=== PATIENT | female | born 1960 | race Caucasian/White ===

== ENCOUNTER 2019-05-22 15:06 | Observation (INO) ==
[2019-05-22] MEDS ORDERED: Potassium Chloride Elixir 20 MEQ/15 ML UDC PO ONE (16:01)
[2019-05-22] MEDS ORDERED: Potassium Chloride 40 MEQ, Lidocaine 1% 2 ML in D5% in Water 500 ML IVPB ONE (16:01)
[2019-05-22] MEDS ORDERED: *HR* LORazepam 2 MG/ML VIAL IVP ONE (16:14)
[2019-05-22] MEDS ORDERED: *HR* OxyCODONE/APAP 5/325 TABLET PO ONE (16:14)
--- NOTE | 2019-05-22 16:18 | Emergency Department Note ---
Disposition Clinical Impression: Hypokalemia, Fracture of left lower extremity Disposition: Admitted As Inpatient Time of Disposition: 00:34 General Adult HPI - General Chief complaint: ED Recheck/Abnormal Lab/Rx Stated complaint: low potassium Time Seen by Provider: 05/22/19 15:59 Source: patient - History of Present Illness HPI Narrative: 59-year-old female reports emergency department with concerns for low potassium levels. She is slated for left lower extremity surgery and had outpatient testing today preop. Her potassium level is 2.5 outpatient she was called and told to come to the emergency department. The patient slipped and fractured her left leg and has been evaluated by orthopedics. She states she is scheduled to have surgery this . The patient denies injury otherwise. She denies chest pain shortness breath abdominal pain vomiting or diarrhea. No back pain headache neck pain upper externa pain or right lower external pain. The left lower extremity has not been cold blue numb or weak there is no history of thigh pain coughing up blood or syncope. No palpitations or muscle cramps. Pain Scale: 8 - Related Data Home Medications Medication Instructions Recorded Confirmed Cetirizine HCl [24Hour Allergy] 10 mg PO QAM 05/22/19 05/22/19 Losartan 100 mg PO QAM 05/22/19 05/22/19 Metoprolol Succinate [Toprol Xl] 50 mg PO 05/22/19 Omeprazole 40 mg PO QAM 05/22/19 05/22/19 Percocet 5-325 mg Tablet 5 mg PO Q6HR PRN 05/22/19 05/22/19 Pioglitazone [Actos] 30 mg PO QAM 05/22/19 05/22/19 Viibryd 40 PO DAILY 05/22/19 Allergies Allergy/AdvReac Type Severity Reaction Status Date / Time codeine Allergy Itching, Verified 05/22/19 12:39 Hives Jtacgdu-Ths-Mgh Reductase Allergy Muscle Pain Verified 05/22/19 12:39 Inhibitor [Statins] All systems ED: reviewed and negative except as stated. Past Medical History - Past Medical History Medical history: Reports: hypertension, SVT Surgical history: Reports: , hysterectomy Psychiatric history: Reports: anxiety, depression, PTSD BLOOD BANK COORDINATOR history: Reports: no BLOOD BANK COORDINATOR history - Social History Smoking Status: Current every day smoker Alcohol use: Reports: rarely Drug use: Reports: none Physical Exam - General Limitations: no limitations General appearance: alert, anxious - Head Head exam: atraumatic - Eye Eye exam: Present: normal appearance, PERRL, EOMI - ENT ENT exam: normal exam, normal oropharynx, mucous membranes moist - Neck Neck exam: Present: normal inspection, full ROM, trachea midline - Chest Chest inspection: Present: symmetric chest wall rise. Absent: tenderness - Respiratory Respiratory exam: Present: normal lung sounds bilaterally. Absent: respiratory distress, prolonged expiratory phase - Cardiovascular Cardiovascular exam: Present: regular rate, normal rhythm, normal heart sounds - Abdominal Exam Abdominal exam: Present: soft, Non-Tender, normal bowel sounds. Absent: tenderness, distention, guarding, rebound, rigidity - Extremities Exam Extremities exam: Present: normal capillary refill, other (The upper extremities and right lower extremity are supple warm and well perfused without evidence of injury or gross anatomic abnormality. The left lower extremity is wrapped and splinted below the knee. Toes are exposed warm and well-perfused sensate and mobile. The left knee and hip are supple. There is no evidence of thigh hip or knee pain to palpation or with movement. There is no cellulitic change noted in these areas.). Absent: pedal edema - Back Exam Back exam: Present: normal inspection, full ROM. Absent: tenderness, CVA tenderness (R), CVA tenderness (L), vertebral tenderness - Neurological Exam Neurological exam: Present: alert, oriented X3, CN II-XII intact. Absent: motor sensory deficit - Psychiatric Psychiatric exam: Present: normal affect, normal mood - Skin Skin exam: Present: warm, dry, intact, normal color Course Vital Signs Temperature 98.1 F 05/22/19 15:29 Pulse Rate 93 05/22/19 15:29 Respiratory Rate 16 05/22/19 15:29 Blood Pressure 132/84 05/22/19 15:29 O2 Sat by Pulse Oximetry 98 05/22/19 15:29 Temperature 98.0 F 05/22/19 22:28 Pulse Rate 82 05/22/19 22:28 Respiratory Rate 18 05/22/19 22:28 Blood Pressure 151/82 05/22/19 22:28 O2 Sat by Pulse Oximetry 94 05/22/19 22:28 Oxygen Delivery Oxygen Delivery Room Air Medical Decision Making - [facility] Narrative Medical decision making narrative: The patient's potassium is 2.5. EKG shows no major abnormality. Magnesium normal. IV potassium was ordered as well as by mouth potassium. The patient was somewhat anxious and was given Ativan. She requested pain medication for her left lower extremity fracture. Percocet was ordered. Based on the patie nt's significant electrolyte disturbance I thought it would be appropriate to admit the patient the hospital. She also has a CT scan of her left lower extremity pending and has LLE surgery pending this coming . I discussed the case with the hospitalist on-call who has accepted the patient to their care. She is agreeable. - Lab Data Lab results reviewed: Yes I reviewed the patient's lab results. Result diagrams: 05/22/19 16:15 Lab Results 05/22/19 Range/Units 16:15 Sodium 142 (136-145) mEq/L Potassium 2.5 L* (3.5-5.1) mEq/L Chloride 97 L (98-107) mEq/L Carbon Dioxide 32 H (23-29) mEq/L BUN 5 L (6-20) mg/dL Creatinine 0.54 L (0.60-1.20) mg/dL Est GFR ( Amer) > 60 (> 60) Est GFR (Non-Af Amer) > 60 (> 60) BUN/Creatinine Ratio 9 (6-26) Glucose 159 H (70-105) mg/dL Calculated Osmolality 295 (280-300) Calcium 9.3 (8.6-10.3) mg/dL Magnesium 1.6 (1.6-2.6) mg/dL
[2019-05-22 17:33] LABS: BUN/Creatinine Ratio 9 (6-26); Blood Urea Nitrogen 5 mg/dL (6-20); Calcium 9.3 mg/dL (8.6-10.3); Carbon Dioxide 32 mEq/L (23-29); Chloride 97 mEq/L (98-107); Glucose 159 mg/dL (70-105); Magnesium 1.6 mg/dL (1.6-2.6); Osmolality,Calculated 295 (280-300); Potassium 2.5 mEq/L (3.5-5.1); Sodium 142 mEq/L (136-145); eGFR For African Americans > 60 (> 60); eGFR For Non-African Americans > 60 (> 60)
[2019-05-22] MEDS ORDERED: Acetaminophen 325 MG TABLET PO PRN (19:19)
[2019-05-22] MEDS ORDERED: Naloxone 0.4 MG/ML INJ IVP PRN (19:19)
--- NOTE | 2019-05-22 19:25 | Internal Med History&Physical ---
Date of Encounter: 05/23/19 Time of Encounter: 19:24 Internal Medicine - H&P: HPI Chief complaint: Hypokalemia History of present illness: Ms. Pena is a 59 year old female with past medical history of hypertension, SVT, depression and anxiety who presents to the ED after preoperative outpatient laboratory workup revealed significant hypokalemia. Patient was found to have a potassium of 2.5 and instructed to come in for further evaluation. Patient recently slipped and fractured her left leg and was being evaluated by orthopedics and has a planned surgical procedure this . Patient was evaluated in the ED in March of this year for palpitations. At the time she was found to have a mildly low potassium level of 3.2. Patient otherwise at this time reports no symptoms stating she was completely asymptomatic. No reports of changes in medication, nausea, vomiting or diarrhea. On initial presentation, vitals were stable. Laboratory workup notable for a potassium of 2.5, bicarbonate 32, normal kidney function and a magnesium of 1.6. EKG relatively unremarkable. Patient received 40 mEq of oral potassium as well as 40 mEq of IV piggyback. On my assessment, patient was disgruntled and did not want come into the hospital today. She is adamant about leaving tomorrow and following up plan for surgical correction of her left ankle. Past Med Surg Social Fam HX - Past Medical History Medical history: hypertension, SVT Additional medical history: Palpitation. Anxiety. Hyperlipidemia. Neck Sx Psychiatric history: anxiety, depression, PTSD - Past Surgical History Surgical History: , hysterectomy Additional surgical history: c5/c7 fusion, posterior ablation - Social History Smoking Status: Current every day smoker Alcohol use: rarely Drug use: none Internal Medicine - H&P: Meds Cetirizine HCl [24Hour Allergy] 10 mg PO QAM 05/22/19 [History] Losartan 100 mg PO QAM 05/22/19 [History] Metoprolol Succinate [Toprol Xl] 50 mg PO 05/22/19 [History] Omeprazole 40 mg PO QAM 05/22/19 [History] Percocet 5-325 mg Tablet 5 mg PO Q6HR PRN 05/22/19 [History] Pioglitazone [Actos] 30 mg PO QAM 05/22/19 [History] Viibryd 40 PO DAILY 05/22/19 [History] Potassium Chloride 40 meq PO DAILY #60 tab.er.prt 05/23/19 [Rx] Allergy/AdvReac Type Severity Reaction Status Date / Time codeine Allergy Itching, Verified 05/22/19 12:39 Hives Tjgbwdd-Imt-Gvf Reductase Allergy Muscle Pain Verified 05/22/19 12:39 Inhibitor [Statins] All Systems PM: A 10-system review of systems was performed and is negative for pertinent findings except as documented above in the HPI. - Constitutional Constitutional: no chills, no fever(s), no night sweats - EENT Eyes: no change in vision, no discharge, no pain, no photophobia Ears: no ear discharge, no ear pain, no tinnitus Nose, mouth and throat: no dysphagia, no nasal discharge, no neck pain, no sore throat - Cardiovascular Cardiovascular ROS IM: no chest pain, no diaphoresis, no dyspnea, no lightheadedness, no palpitations, no syncope - Respiratory Respiratory: no cough, no dyspnea, no wheezing, no excessive phlegm production - Gastrointestinal Gastrointestinal: no abdominal pain, no diarrhea, no hematemesis, no hematochezia, no melena, no nausea, no vomiting - Genitourinary Genitourinary: no change in urinary stream, no dysuria, no flank pain, no hematuria - Musculoskeletal Musculoskeletal ROS IM: no numbness, no tingling - Integumentary Integumentary IM: no rash, no unusual bruising - Neurological Neurological ROS: no confusion, no convulsions, no focal weakness, no numbness, no tingling, no tremor(s) - Hematologic/Lymphatic Hematologic/Lymphatic: no easy bruising - Constitutional Vitals: Temp Pulse Resp BP Pulse Ox 98.1 F 89 19 146/86 96 05/22/19 16:00 05/22/19 18:08 05/22/19 18:08 05/22/19 18:08 05/22/19 18:08 Exam: General: Alert and oriented 3 lying in bed in no acute distress Skin:Normal color, no rash, no lesions. HEENT:EOM, pupils equal, round and reactive. Cardiovascular:Normal S1 & S2, no rubs, murmurs or gallops. No JVD. Pulse regular. Lungs:Normal breath sounds, no wheezes or crackles. Abdomen:Soft, non-tender, no rigidity. Extremities:No deformity, no edema or tenderness, no joint swelling or clubbing. Neurological:Normal cognition and motor skills. Pulses:Carotid and radial pulses normal +2. Rest of the physical exam is non contributory Internal Med - H&P Results - Labs CBC & Chem 7: 05/23/19 10:13 Labs: BMP 05/22/19 16:15 Sodium 142 Potassium 2.5 L* Chloride 97 L Carbon Dioxide 32 H BUN 5 L Creatinine 0.54 L Glucose 159 H Calcium 9.3 - Assessment and Plan (1) Fracture of left lower extremity Status: Acute Assessment and plan: Patient followed by orthopedics. Has planned surgical intervention on . -Continue pain control. -Consider orthopedics consult if patient to remain hospitalized Qualifiers: Encounter type: subsequent encounter Fracture type: closed Fracture healing: with routine healing Qualified Code(s): S82.92XD - Unspecified fracture of left lower leg, subsequent encounter for closed fracture with routine healing (2) Hypokalemia Status: Acute Assessment and plan: Hyperkalemia with a potassium of 2.5. Etiology at this time unclear. No significant EKG changes noted. Patient otherwise asymptomatic. Patient received a total of 80 mEq via IV and by mouth patient. -Reassess potassium and replete as needed -Continue telemetry (3) JAYLA (obstructive sleep apnea) Status: Acute Assessment and plan: Continue home CPAP at night (4) DVT prophylaxis Status: Acute Assessment and plan: Subcutaneous heparin - Time Spent With Patient Total time spent is greater than 50% in coordination of care (as documented) at patient's floor/unit and/or counseling patient:
[2019-05-22] MEDS: *HR* Heparin 5,000 UNIT/ML VIAL SQ SCH (21:29)
[2019-05-22] MEDS ORDERED: Nicotine 2 MG GUM BC PRN (21:59)
[2019-05-22] MEDS ORDERED: *HR* Dextrose 50 % in Water (Syg) 50 ML SYRINGE IVP PRN (22:20)
[2019-05-22] MEDS ORDERED: D5% in Water 1,000 ML IVC PRN (22:20)
[2019-05-22] MEDS ORDERED: Dextrose Gel 15 GM/37.5 ML TUBE PO PRN ×2 (22:20)
[2019-05-22] MEDS: Insulin LISPRO 300 UNITS/3 ML VIAL SQ SCH (22:36)
[2019-05-22] MEDS: *HR* OxyCODONE/APAP 5/325 TABLET PO PRN (22:39)
[2019-05-23 01:17] LABS: Alanine Aminotransferase 18 Units/L (7-52); Albumin 3.7 g/dL (3.5-5.7); Albumin/Globulin Ratio 1.5 (1.1-2.2); Alkaline Phosphatase 49 Units/L (34-104); Aspartate Amino Transferase 20 Units/L (13-39); BUN/Creatinine Ratio 12 (6-26); Bilirubin,Total 0.8 mg/dL (0.3-1.0); Blood Urea Nitrogen 5 mg/dL (6-20); Calcium 8.7 mg/dL (8.6-10.3); Carbon Dioxide 32 mEq/L (23-29); Chloride 101 mEq/L (98-107); Globulin 2.4 g/dL (2.4-3.5); Glucose 136 mg/dL (70-105); Magnesium 1.8 mg/dL (1.6-2.6); Osmolality,Calculated 287 (280-300); Potassium 2.9 mEq/L (3.5-5.1); Sodium 139 mEq/L (136-145); Total Protein 6.1 g/dL (6.4-8.9); eGFR For African Americans > 60 (> 60); eGFR For Non-African Americans > 60 (> 60)
[2019-05-23] MEDS ORDERED: Potassium Chloride Elixir 20 MEQ/15 ML UDC PO ONE ×2 (04:44→08:11)
[2019-05-23] MEDS: *HR* OxyCODONE/APAP 5/325 TABLET PO PRN (05:02)
[2019-05-23] MEDS: *HR* Heparin 5,000 UNIT/ML VIAL SQ SCH (05:02)
[2019-05-23] MEDS: Insulin LISPRO 300 UNITS/3 ML VIAL SQ SCH ×2 (07:39→12:01)
[2019-05-23] MEDS ORDERED: Metoprolol XL (24 HR) Succ 50 MG TAB.ER.24H PO SCH (09:00)
[2019-05-23 11:02] VITALS: BP 149/86
--- NOTE | 2019-05-23 11:08 | Discharge Summary ---
- NOTES TO OUTPATIENT PROVIDER Notes to Outpatient Provider: Follow-up with nephrology as outpatient. Repeat BMP in 5 days Date of Encounter: 05/23/19 Time of Encounter: 08:15 - Discharge Diagnosis (1) Hypokalemia Priority: Primary Status: Acute (2) Fracture of left lower extremity Priority: Secondary Status: Acute Qualifiers: Encounter type: subsequent encounter Fracture type: closed Fracture healing: with routine healing Qualified Code(s): S82.92XD - Unspecified fracture of left lower leg, subsequent encounter for closed fracture with routine healing (3) DVT prophylaxis Priority: Secondary Status: Acute (4) JAYLA (obstructive sleep apnea) Priority: Secondary Status: Acute Hospital course: Ms. Pena is a 59 year old female with past medical history of hypertension, SVT, who was admitted for hypokalemia that was noted on preoperative outpatient laboratory workup. Pt states that she is known to have hypokalemia for the last few years but denies seeing any physician as outpatient for follow up nor taking potassium supplement. K 2.5 on presentation without EKG abnormalities. Improved to 2.9 after 80meq of potassium and additional 40meq was given prior to d/c. She is scheduled for outpatient surgery for L bimalleolar fracture on 05/[address] L ankle prior to the surgery is to be re-scheduled by podiatry whom I discussed with prior to her discharge. She will be discharged on 40meq of potassium supplement daily with repeat BMP in 5 days and follow up with Nephrology as outpatient. Discharge discussed with: patient, family, nurse, data management consultant - Time Spent with Patient Total time spent providing and/or coordinating discharge services: 35 mins - Discharge Medications Prescriptions: New Potassium Chloride 40 meq PO DAILY #60 tab.er.prt Continued Metoprolol Succinate [Toprol Xl] 50 mg PO Losartan 100 mg PO QAM Viibryd 40 PO DAILY Omeprazole 40 mg PO QAM Cetirizine HCl [24Hour Allergy] 10 mg PO QAM Pioglitazone [Actos] 30 mg PO QAM Percocet 5-325 mg Tablet 5 mg PO Q6HR PRN PRN Reason: Pain Home Medications: Cetirizine HCl [24Hour Allergy] 10 mg PO QAM 05/22/19 [History] Losartan 100 mg PO QAM 05/22/19 [History] Metoprolol Succinate [Toprol Xl] 50 mg PO 05/22/19 [History] Omeprazole 40 mg PO QAM 05/22/19 [History] Percocet 5-325 mg Tablet 5 mg PO Q6HR PRN 05/22/19 [History] Pioglitazone [Actos] 30 mg PO QAM 05/22/19 [History] Viibryd 40 PO DAILY 05/22/19 [History] Potassium Chloride 40 meq PO DAILY #60 tab.er.prt 05/23/19 [Rx] Allergies/Adverse Reactions: Allergy/AdvReac Type Severity Reaction Status Date / Time codeine Allergy Itching, Verified 05/22/19 12:39 Hives Hucdsrq-Zhl-Txa Reductase Allergy Muscle Pain Verified 05/22/19 12:39 Inhibitor [Statins] Date of admission: 05/22/19 19:38 Primary care physician: Denver Soto - Constitutional Vitals: Temp Pulse Resp BP Pulse Ox 97.5 F L 72 18 149/86 96 05/23/19 11:01 05/23/19 11:01 05/23/19 11:01 05/23/19 11:01 05/23/19 11:01 Exam: General: Alert and oriented, not in acute distress. Cardiovascular:Normal S1 & S2, No JVD. Pulse regular. Lungs: clear to auscultation, no wheezes/rales Abdomen:Soft, non-tender, no rigidity. Extremities: L LE in splints. Neurovascularly intact distally Neurological:Normal cognition and motor skills. Non-focal - Patient Status Disposition: Home, Self-Care Condition: Fair Functional capacity at discharge: independent ambulation Overall status at discharge: patient is progressing back to baseline - Discharge Instructions Follow Up With: Denver Soto DO [Primary Care Provider] - Additional Instructions: For outpt surgery with podiatry tomorrow. CT L ankle is to be re-scheduled per podiatry. - Diet and Activity Activity: resume usual activities as tolerated Diet: low salt diet
--- NOTE | 2019-05-24 14:50 | Electrocardiograph Report ---
[address] [address] Test Date: 2019-05-22 Pat Name: Nicki Pena Department: EXAM1 Room: [facility] Gender: Support Merchandiser: : 1960 Requested By: Asif Steiner Order Number: [id number] Reading MD: Dieter Kevin Measurements Intervals [place] Rate: 87 P: 54 WA: 145 QRS: 66 QRSD: 81 T: 36 QT: 385 QTc: 464 Interpretive Statements Sinus rhythm Low voltage, precordial leads Diffuse ST-T wave changes Electronically Signed On 05-24-2019 14:49:10 EDT by Dieter Kevin
== END 2019-05-23 12:25 | disposition home or self-care (01) ==
LOC: 3NENU 15:06 → EMEROOARM 15:06 → SUATTDRO 19:38 → 3NENU 20:04
PROVIDERS: ADMIT Internal Medicine; ATTEND Internal Medicine